=== PATIENT | female | born 1930 | race Caucasian/White ===

== ENCOUNTER → 2016-10-07 | Outpatient (CLI) | payer MEDICARE, OTHER ==
[~2016-10-07] MED LIST: AMLO10TA2 PO; ASPI81TA2 PO; ATOR10TA PO; BUTA1CAP29 PO; CALC-56 PO; DEXT350P PO; HYDR-971 PO; HYDR10TA2 PO; LOSA100T2 PO; MULT-246 PO; NAPR220C4 PO; NYST15OI2 TP; OMEG1CAP6 PO; RANI300T3 PO
--- NOTE | 2016-10-07 12:11 | RAD ---
EXAM: Carotid Doppler sonogram. HISTORY: Blurred vision. TECHNIQUE: Doppler sonographic evaluation of the neck was performed and static images are submitted for review. FINDINGS: There is mild mixed calcified and noncalcified atherosclerotic plaque within the right greater than left carotid bulbs and proximal internal and external carotid arteries. There is intimal thickening involving the bilateral common carotid arteries. The peak systolic velocity within the right common carotid artery is 61 cm/sec. The peak systolic velocities within the right proximal, mid and distal internal carotid artery are 42 cm/sec, 51 cm/sec, and 35 cm/sec, respectively. The peak systolic velocity within the left common carotid artery is 67 cm/sec. The peak systolic velocities within the left proximal, mid and distal internal carotid artery are 49 cm/sec, 50 cm/sec, and 48 cm/sec, respectively. There is antegrade flow within both vertebral arteries. The left vertebral artery demonstrates a high resistive waveform. IMPRESSION: 1. No Doppler evidence of greater than 50% stenosis within the internal carotid arteries. 2. Higher resistive waveform within the left vertebral artery, suggesting a component of stenosis. 3. Mild mixed calcified and noncalcified atherosclerotic plaque within the right greater than left carotid bulbs and proximal internal and external carotid arteries. There is intimal thickening involving the bilateral common carotid arteries. PQRS Statement: NASCET criteria were utilized for this exam.
== END | disposition home or self-care (01) ==
LOC: US 10:51
PROVIDERS: ATTEND Family Medicine
DX: I10 Essential (primary) hypertension (principal); H53.9 Unspecified visual disturbance; E78.00 Pure hypercholesterolemia, unspecified; I65.23 Occlusion and stenosis of bilateral carotid arteries
CPT/HCPCS: 93880